=== PATIENT | female | born 1945 | race Caucasian/White ===

== ENCOUNTER 2022-01-28 00:12 | Emergency (ER) | payer MEDICARE ==
[~2022-01-28 00:12] MED LIST: AUGMENTIN 500-1 EACH PO
[2022-01-28 01:34] LABS: BASOPHIL 0.5 % (0-2); EOSINOPHIL 2.6 % (0-7); HCT 41.3 % (37.0-47.0); HGB 13.6 g/dl (12.5-16.0); LYMPHOCYTE 18.6 % (15-48); MCH 30.6 pg (25.0-31.0); MCHC 32.9 g/dL (32.0-36.0); MONOCYTE 9.2 % (0-12); MPV 10.3 fL (6.0-9.5); NEUTROPHIL 68.7 % (41-80); NRBC 0; PLT 231 K/uL (150-400); RBC 4.44 M/uL (4.20-5.40); RDW 12.8 % (11.5-14.0); WBC 8.3 K/uL (4.0-10.5)
[2022-01-28 02:05] LABS: ALBUMIN 3.1 g/dL (3.4-5.0); BILIRUBIN - TOTAL 0.3 mg/dL (0.2-1.0); BUN/CREAT RATIO (CALC) 35.9 RATIO; CREATININE 0.64 mg/dL (0.51-0.95); GLOBULIN (CALCULATION) 3.4 g/dL; POTASSIUM 3.2 mmol/L (3.5-5.1); TOTAL PROTEIN 6.5 g/dL (6.4-8.2)
[2022-01-28] MEDS ORDERED: NORCO 5-325 TA1 EACH PO (03:34)
== END 2022-01-28 03:50 | disposition home or self-care (01) ==
LOC: FER 00:12
PROVIDERS: Emergency Medicine
DX: S22.32XA Fracture of one rib, left side, initial encounter for closed fracture (principal); J44.9 Chronic obstructive pulmonary disease, unspecified; I10 Essential (primary) hypertension; Z79.899 Other long term (current) drug therapy; X50.1XXA Overexertion from prolonged static or awkward postures, initial encounter; Y93.89 Activity, other specified; Y92.002 Bathroom of unspecified non-institutional (private) residence as the place of occurrence of the external cause
CPT/HCPCS: 36415; 72128; 80053; 84484; 85025; 93005